=== PATIENT | male | born 1995 | race Hispanic/Latino ===

== ENCOUNTER 2023-06-10 14:10 | Emergency (ER) | payer SELFPAY ==
[~2023-06-10] VITALS: Ht 170.2 cm; Wt 68.0 kg
[2023-06-10] MEDS ORDERED: BACTRIM DS1 TAB PO (14:56)
[2023-06-10] MEDS ORDERED: ERYTHROMYCIN O3.5 GM OD (14:56)
[2023-06-10] MEDS ORDERED: MOTRIN800 MG PO (14:57)
[2023-06-10 15:06] VITALS: BP 140/86
== END 2023-06-10 15:07 | disposition home or self-care (01) | DRG 125 ==
LOC: ED 14:10
DX: H11.9 Unspecified disorder of conjunctiva (principal)